=== PATIENT | male | born 1990 | race African-American/Black ===

== ENCOUNTER 2019-08-02 09:02 | Emergency (ER) | payer MEDICAID, OTHER ==
[~2019-08-02] VITALS: Ht 182.9 cm; Wt 97.7 kg
[~2019-08-02 09:02] MED LIST: NOCURR
[2019-08-02] MEDS ORDERED: ACETAMINOPHEN 500 MG TABLET PO ONE (09:15)
[2019-08-02 10:20] VITALS: BP 122/71
== END 2019-08-02 10:35 | disposition home or self-care (01) ==
LOC: EMS 09:04
DX: Z03.818 Encounter for observation for suspected exposure to other biological agents ruled out (principal); R06.02 Shortness of breath; R50.9 Fever, unspecified; M79.10 Myalgia, unspecified site; R51 Headache